=== PATIENT | female | born 2000 | race Caucasian/White ===

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

== ENCOUNTER 2019-11-21 18:59 | Emergency (ER) | payer MEDICAID ==
[~2019-11-21] VITALS: Ht 157.5 cm; Wt 76.7 kg
[2019-11-21 19:04] VITALS: BP 138/84
[2019-11-21] MEDS ORDERED: PREN1TAB60 PO (19:51)
== END 2019-11-21 21:08 | disposition left against medical advice (07) ==
LOC: ED 19:05
DX: O26.892 Other specified pregnancy related conditions, second trimester (principal); M54.5 Low back pain; R10.9 Unspecified abdominal pain; Z53.21 Procedure and treatment not carried out due to patient leaving prior to being seen by health care provider

== ENCOUNTER 2019-11-21 19:30 | Outpatient (CLI) | payer MEDICAID ==
[~2019-11-21] VITALS: Ht 157.5 cm; Wt 76.8 kg
[2019-11-21 19:37] VITALS: BP 113/58
[2019-11-21 19:47] LABS: MICROSCOPIC NOT IND
[2019-11-21] MEDS ORDERED: PREN1TAB60 PO (19:51)
[2019-11-21] MEDS ORDERED: ACETAMINOPHEN 500 MG TABLET ONE (20:22)
[2019-11-21] MEDS ORDERED: ACETAMINOPHEN 500 MG TABLET PO PRN (20:30)
== END 2019-11-21 21:12 | disposition home or self-care (01) ==
LOC: LDOP 19:30
PROVIDERS: ATTEND Obstetrics & Gynecology
DX: O26.892 Other specified pregnancy related conditions, second trimester (principal); R10.9 Unspecified abdominal pain; Z3A.22 22 weeks gestation of pregnancy
CPT/HCPCS: 81003; 87086; 99211; G0463